=== PATIENT | male | born 2000 | race Caucasian/White ===

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

== ENCOUNTER 2023-08-10 10:56 | Emergency (ER) | payer MEDICAID, OTHER ==
[~2023-08-10] VITALS: Ht 175.3 cm; Wt 103.1 kg
[2023-08-10 11:36] VITALS: BP 151/68; PULSE 95; RESP 18; TEMP 100; O2SAT 96
[2023-08-10] MEDS: HYDROcodone-ACET 10/325MG TAB PO ONE (12:06)
[2023-08-10] MEDS ORDERED: BACL10TA PO (12:31)
[2023-08-10] MEDS ORDERED: IBUP-1456 PO (12:31)
== END 2023-08-10 12:42 | disposition home or self-care (01) ==
LOC: ER 10:56
DX: S46.812A Strain of other muscles, fascia and tendons at shoulder and upper arm level, left arm, initial encounter (principal); S93.492A Sprain of other ligament of left ankle, initial encounter; R51.9 Headache, unspecified; F15.90 Other stimulant use, unspecified, uncomplicated; Z79.899 Other long term (current) drug therapy; V49.88XA Car occupant (driver) (passenger) injured in other specified transport accidents, initial encounter; Y93.89 Activity, other specified; Y92.89 Other specified places as the place of occurrence of the external cause; Y99.8 Other external cause status
CPT/HCPCS: 70450; 73610